=== PATIENT | female | born 1980 | race Caucasian/White ===

== ENCOUNTER 2019-06-01 10:30 | Outpatient (CLI) | payer MEDICAID ==
[~2019-06-01 10:30] MED LIST: ASPI-817 PO; FER325 PO; NPH,100I5 SQ; PREN1TAB49 PO
== END 2019-06-01 11:40 | disposition home or self-care (01) ==
LOC: OBT 10:30 → L-D 10:30 → OBT 11:40
PROVIDERS: ATTEND Obstetrics & Gynecology
DX: O24.419 Gestational diabetes mellitus in pregnancy, unspecified control (principal); O13.3 Gestational [pregnancy-induced] hypertension without significant proteinuria, third trimester; Z3A.35 35 weeks gestation of pregnancy
CPT/HCPCS: G0463

== ENCOUNTER 2019-06-12 08:00 | Inpatient (IN) | payer MEDICAID ==
[~2019-06-12] VITALS: Ht 157.5 cm; Wt 94.4 kg
[2019-06-12] MEDS ORDERED: OXYTOCIN 30 UNITS/LR 500 ML IV SCH ×3 (10:00→11:30)
[2019-06-12] MEDS ORDERED: BUTORPHANOL 2 MG INJ IV PRN ×2 (10:00)
[2019-06-12] MEDS ORDERED: MISOPROSTOL 200 MCG TAB PR PRN ×2 (10:00→23:30)
[2019-06-12] MEDS ORDERED: OXYCODONE/ASPIRIN (4.88/325) TAB PO PRN ×2 (10:00→23:30)
[2019-06-12] MEDS ORDERED: METHYLERGONOVINE 0.2 MG INJ IM PRN ×2 (10:00→23:30)
[2019-06-12] MEDS ORDERED: LACTATED RINGER'S 1,000 ML IV SCH (10:00)
[2019-06-12] MEDS ORDERED: LIDOCAINE 1% (MPF) 30 ML INJ INJ PRN (10:00)
[2019-06-12] MEDS ORDERED: MINERAL OIL LIGHT 10 ML VIAL TOP PRN (10:00)
[2019-06-12] MEDS ORDERED: CARBOPROST 250 MCG INJ IM PRN ×2 (10:00→23:30)
[2019-06-12] MEDS ORDERED: OXYTOCIN 30 UNITS/LR 500 ML IV PRN ×2 (10:00→23:30)
[2019-06-12] MEDS ORDERED: IBUPROFEN 600 MG TAB PO PRN (10:00)
[2019-06-12] MEDS ORDERED: AMPICILLIN 2 GM/NS (PMX) 100 ML IV ONE (10:12)
[2019-06-12 10:13] VITALS: Ht 157.5 cm; Wt 94.4 kg
[2019-06-12 10:14] VITALS: BP 125/88; PULSE 73; RESP 18
[2019-06-12] MEDS: DEXTROSE 5%-LR 1,000 ML IV SCH ×2 (11:17→18:52)
[2019-06-12] MEDS ORDERED: AMPICILLIN 1 GM/NS (PMX) 50 ML IV SCH (14:30)
[2019-06-12] MEDS ORDERED: FENTAnyl 2MCG/ML-ROPIV 0.2% 100 ML ONE (17:16)
[2019-06-12] MEDS ORDERED: ONDANSETRON 4 MG INJ IV PRN (17:30)
[2019-06-12] MEDS ORDERED: DIPHENHYDRAMINE 50 MG INJ IV PRN (17:30)
[2019-06-12] MEDS ORDERED: NALOXONE (0.4 MG/ML) INJ IV PRN (17:30)
[2019-06-12] MEDS ORDERED: FENTAnyl 2MCG/ML-ROPIV 0.2% 100 ML BAG EPI SCH (17:30)
[2019-06-12 23:00] VITALS: BP 136/74; PULSE 74; RESP 19
[2019-06-12] MEDS ORDERED: WITCH HAZEL/GLYCERIN PAD PR PRN (23:30)
[2019-06-12] MEDS ORDERED: ZOLPIDEM 5 MG TAB PO PRN (23:30)
[2019-06-12] MEDS ORDERED: LANOLIN HPA 1 PKT TOP PRN (23:30)
[2019-06-12] MEDS ORDERED: BENZOCAINE 20% 56 ML SPRAY TOP PRN (23:30)
[2019-06-13] VITALS: BP 126/74; PULSE 77; RESP 18
[2019-06-13] MEDS: IBUPROFEN 600 MG TAB PO SCH ×5 (00:21→23:29)
[2019-06-13 04:00] VITALS: BP 130/66; PULSE 69; RESP 19
[2019-06-13 08:00] VITALS: BP 121/68; PULSE 66; RESP 18
[2019-06-13] MEDS: OXYCODONE/ASPIRIN (4.88/325) TAB PO PRN ×2 (09:45→16:38)
[2019-06-13] MEDS: SENNA/DOCUSATE NA (8.6MG/50MG) TAB PO SCH ×2 (09:45→23:28)
[2019-06-13 19:55] VITALS: BP 131/67; PULSE 67; RESP 19
[2019-06-14 03:55] VITALS: BP 127/57; PULSE 71; RESP 18
[2019-06-14] MEDS: IBUPROFEN 600 MG TAB PO SCH ×2 (05:42→11:09)
[2019-06-14 08:00] VITALS: BP 113/59; PULSE 84; RESP 17
[2019-06-14] MEDS: SENNA/DOCUSATE NA (8.6MG/50MG) TAB PO SCH (08:49)
[2019-06-14] MEDS ORDERED: DIPHTH/TET/ACEL PERTUSS (ADULT) 0.5 ML VIAL IM* ONE (09:00)
== END 2019-06-14 16:12 | disposition home or self-care (01) | DRG 806 ==
LOC: L-D 08:01 → MS1 23:00
PROVIDERS: ADMIT Obstetrics & Gynecology; ATTEND Obstetrics & Gynecology
PROC: 10E0XZZ Delivery of Products of Conception, External Approach (ICD-10-PCS; principal; 2019-06-12 08:00)
DX: O24.429 Gestational diabetes mellitus in childbirth, unspecified control (principal); D62 Acute posthemorrhagic anemia; Z37.0 Single live birth; Z3A.39 39 weeks gestation of pregnancy; O69.81X0 Labor and delivery complicated by cord around neck, without compression, not applicable or unspecified; O90.81 Anemia of the puerperium
CPT/HCPCS: 62322; 76815; 80053; 81001; 82947; 82962; 84560; 85025; 85610; 85730; 86592; 86850; 86900; 86901; 87340; 90715; J2590; J3010; J7120; J7121